=== PATIENT | female | born 1960 | race Caucasian/White ===

== ENCOUNTER 2017-11-21 04:02 | Emergency (ER) | payer OTHER ==
[2017-11-21] MEDS: HYDROCODONE/APAP (5/325) TAB PO (06:39)
== END 2017-11-21 06:45 | disposition home or self-care (01) ==
LOC: FTE 04:02
DX: S89.92XA Unspecified injury of left lower leg, initial encounter (principal); I10 Essential (primary) hypertension; E11.9 Type 2 diabetes mellitus without complications; W18.30XA Fall on same level, unspecified, initial encounter; Y92.9 Unspecified place or not applicable
CPT/HCPCS: 29505; 73562; 99283-25